=== PATIENT | female | born 1965 | race Caucasian/White ===

== ENCOUNTER 2017-02-12 05:14 | Inpatient (IN) | payer OTHER ==
[2017-02-03 09:50] VITALS: BMI 21.0
--- NOTE | 2017-02-03 10:34 | PAT Medication Instructions ---
Service Date Feb 03, 2017. Current Home Medication List Pseudoephedrine-Ibuprofen (Advil Cold & Sinus), 1 TAB PO PRN Medication Instructions For Your Scheduled Surgery - Hold the following medications the morning of surgery: Pseudoephedrine-Ibuprofen (Advil Cold & Sinus), 1 TAB PO PRN Nothing to eat or drink after midnight If you have any questions please call us at [phone] or [phone] or [phone]
[2017-02-03 11:42] LABS: BASO % 0.2 %; BASO ABS # 0.02 K/uL (0-0.2); COMPLETE YES; EOS % 1.6 %; HEMATOCRIT 44.7 % (37-47); IG% 0.1 %; LYMPH % 31.7 %; LYMPH ABS # 2.83 K/uL (1.2-3.4); MEAN CELL VOLUME 94.5 fL (80-100); MEAN CORPUSCULAR HEMOGLOBIN 31.7 pg (25-34); MEAN CORPUSCULAR HGB CONC 33.6 g/dl (32-36); MEAN PLATELET VOLUME 9.6 fL (7.4-10.4); MONO % 6.5 %; NEUT % 59.9 %; PLATELET COUNT 344 K/uL (130-400); RED BLOOD COUNT 4.73 M/uL (4.2-5.4); URINE APPEARANCE CLEAR (CLEAR); URINE BILIRUBIN NEG (NEG); URINE COLOR YELLOW; URINE NITRITE NEG (NEG); URINE SPECIFIC GRAVITY 1.009 (1.000-1.030); UROBILINOGEN NEG (NEG); WHITE BLOOD COUNT 8.92 K/uL (4.8-10.8)
[2017-02-03 11:50] LABS: PROTHROMBIN TIME (PATIENT) 10.2 SECONDS (9.0-12.0)
--- NOTE | 2017-02-03 11:52 | DIAGNOSTIC IMAGING REPORT ---
CHEST 2 VIEWS ROUTINE HISTORY: Preop. COMPARISON: None. FINDINGS: The lungs are clear. Cardiac silhouette is normal in size. No pleural effusions. No pneumothorax. IMPRESSION: No acute process. Electronically signed by: Jass Swann M.D. 02/03/2017 11:50 AM Dictated Date/Time: 02/03/2017 11:50 AM
[2017-02-03 11:55] LABS: MANUAL MICROSCOPIC REQUIRED? NO; REVIEW REQ? NO
[2017-02-03 12:26] LABS: BUN/CREATININE RATIO 19.9 (10-20); CALCIUM 8.8 mg/dl (8.5-10.1); CREATININE 0.57 mg/dl (0.60-1.20)
[2017-02-12] VITALS (8 sets, daily range): BP systolic 87–105; BP diastolic 53–64; PULSE 58–82; TEMP 36.3–37; O2SAT 96–100; Ht 165.1 cm; Wt 59.1 kg
[~2017-02-12] VITALS: Ht 165.1 cm; Wt 59.1 kg
[~2017-02-12 05:14] MED LIST: PSEUTAB19 PO
[2017-02-12] MEDS ORDERED: LORA-741 PO (05:43)
[2017-02-12] MEDS ORDERED: METR500T PO (05:44)
[2017-02-12] MEDS: LACTATED RINGER'S 1000ML IV SCH ×2 (05:46→11:03)
[2017-02-12] MEDS ORDERED: SCOPOLAMINE 1.5 MG TDSY TD SCH (06:00)
[2017-02-12] MEDS ORDERED: LACTATED RINGER'S 1000ML 1,000 ML IV SCH (06:00)
[2017-02-12] MEDS ORDERED: CEFAZOLIN 2000MG IV PUSH 10 ML IV SCH (06:00)
[2017-02-12] MEDS ORDERED: CHECK SCOPOLAMINE PATCH PLACEMENT SCH (06:00)
[2017-02-12] MEDS ORDERED: METHYLENE BLUE 0.5% 10 ML VIAL ONE (06:40)
[2017-02-12] MEDS ORDERED: MINERAL OIL LIGHT 10 ML BTL ONE (06:40)
[2017-02-12] MEDS ORDERED: BUPIVACAINE 0.5 % 5 MG/1 ML MPF 30ML VIAL ONE (06:40)
[2017-02-12] MEDS ORDERED: FENTANYL CITRATE INJ 50 MCG/1 ML 2 ML VIAL ONE (06:46)
[2017-02-12] MEDS ORDERED: MIDAZOLAM HCL 1 MG/ML 2ML VIAL ONE (06:46)
--- NOTE | 2017-02-12 06:59 | History & Physical Bridge Note ---
H&P Re-Evaluation Bridge Note: I have examined the patient, reviewed the History & Physical and in the interval since the performance of the History & Physical I have noted the following changes of clinical significance: No changes noted
[2017-02-12] MEDS ORDERED: HYDROmorphone INJ 2 MG/ML SYR/VIAL ONE (07:22)
[2017-02-12] MEDS ORDERED: ATROPINE SULFATE 0.1 MG/ML 5ML SYR IV PRN (07:30)
[2017-02-12] MEDS ORDERED: HYDROmorphone INJ 1 MG/ML SYR IV PRN (07:30)
[2017-02-12] MEDS ORDERED: ONDANSETRON INJ 2 MG/ML 2 ML VIAL IV PRN ×2 (07:30→09:30)
[2017-02-12] MEDS ORDERED: EpHEDrine SULFATE INJ 50 MG/ML AMP IV PRN (07:30)
[2017-02-12] MEDS ORDERED: ONDANSETRON INJ 2 MG/ML 2 ML VIAL ONE (07:32)
[2017-02-12] MEDS ORDERED: GLYCOPYRROLATE INJ 0.2 MG/ML VIAL ONE (07:32)
[2017-02-12] MEDS ORDERED: PROPOFOL IV EMULSION 10 MG/ML 20 ML VIAL IV ONE (07:32)
[2017-02-12] MEDS ORDERED: ROCURONIUM BROMIDE 10 MG/ML 5 ML VIAL IV ONE (07:32)
[2017-02-12] MEDS ORDERED: LARYING-O-JET KIT (LTA) ONE ×2 (07:32)
[2017-02-12] MEDS ORDERED: LIDOCAINE HCL 2% 2 ML VIAL (20MG/ML) ONE (07:32)
[2017-02-12] MEDS ORDERED: METOCLOPRAMIDE HCL INJ 5 MG/ML 2 ML VIAL ONE (07:32)
[2017-02-12] MEDS ORDERED: DEXAMETHASONE SOD INJ 4 MG/ML VIAL ONE (07:32)
[2017-02-12] MEDS ORDERED: NEOSTIGMINE METHYLSULFATE 5 MG/5 ML SYR ONE (07:32)
[2017-02-12] MEDS ORDERED: ALBUTEROL HFA INHALER 8.5 GM INH ONE (09:19)
[2017-02-12] MEDS ORDERED: OXYCODONE/ACETAMINOPHEN 5-325 TAB PO PRN (09:30)
[2017-02-12] MEDS ORDERED: PROMETHAZINE HCL INJ 12.5 MG in SODIUM CHLORIDE 0.9% 50ML 50 ML IV PRN (09:30)
[2017-02-12] MEDS ORDERED: MEPERIDINE HCL 50 MG/ML CARP IV PRN ×2 (09:30)
[2017-02-12] MEDS ORDERED: ACETAMINOPHEN 325 MG TAB PO PRN (09:30)
[2017-02-12] MEDS ORDERED: KETOROLAC TROMETHAMINE 30 MG/ML VIAL IV. PRN (09:30)
[2017-02-12] MEDS ORDERED: BISACODYL 10 MG SUPP PR PRN (09:30)
[2017-02-12] MEDS ORDERED: PROMETHAZINE HCL INJ 25 MG in SODIUM CHLORIDE 0.9% 50ML 50 ML IV PRN (09:30)
[2017-02-12] MEDS ORDERED: MAGNESIUM HYDROXIDE SUSP 30 ML UDC PO PRN (09:30)
--- NOTE | 2017-02-12 09:34 | [facility] Post Operative Brief Note ---
Immediate Operative Summary Operative Date Feb 12, 2017. Pre-Operative Diagnosis Abnormal uterine bleeding, atypical galndular cells on pap smear Post-Operative Diagnosis same Procedure(s) Performed Exam Under Anesthesia, Total Laparoscopic Hysterectomy, Bilateral Salpingo-Oophorectomy, Cystoscopy Surgeon Dr. Martin Entry Level Recruiter Surgeon(s) Dr. Jenkins Estimated Blood Loss 25cc Findings Normal size uterus,2x2 cm left paraovarian cyst Specimens A: Uterus, Ovaries, Fallopian Tubes Drains riley 75 ml Anesthesia GETA Disposition Recovery Room / PACU
--- NOTE | 2017-02-12 09:41 | SURGICAL CONSULTATION ---
DATE OF CONSULTATION: 02/12/2017 DATE OF CONSULTATION: 02/12/2017 SUMMARY: I was asked for intraoperative consult by Dr. Martin regarding Geovanna Espinoza. Reason for consultation was for maybe look at the bowel and evaluate to see any pathology. The patient has had a hysterectomy that was completed as I look at the intraoperative field through the laparoscope and that was completed, but the indication for hysterectomy according to Dr. Martin was that she has abdominal distention and bloating and never had any really GI workup. Her question was whether or not the bowel could be explaining some of the reason for the bloating. As I look at the small bowel it was grossly normal. I do not see any evidence of any gross abnormality. The cecum was slightly distended but nothing significant , did not have any fat stranding or anything. At this point, I recommended that once the patient gets over the operative field maybe she have further GI workup regarding any other reasons for abdominal distention, but certainly there is nothing I can see intraoperative evaluation today to give her a definitive diagnosis. GUDELIA
[2017-02-12] MEDS ORDERED: KETOROLAC TROMETHAMINE 30 MG/ML VIAL ONE (09:43)
[2017-02-12] MEDS: FENTANYL CITRATE INJ 50 MCG/1 ML 2 ML VIAL IV PRN ×2 (09:57→10:02)
--- NOTE | 2017-02-12 10:07 | Anesthesiology Progress Note ---
Anesthesia Post Op Note Date & Time Feb 12, 2017 at 10:07 Vital Signs Vital Signs Past 12 Hours Date Time Temp Pulse Resp B/P (MAP) Pulse Ox O2 Delivery O2 Flow Rate FiO2 02/12/17 10:02 59 15 02/12/17 10:02 59 15 100 02/12/17 10:01 95/74 02/12/17 09:57 57 16 100 02/12/17 09:57 54 16 02/12/17 09:52 54 16 02/12/17 09:52 54 16 100 02/12/17 09:51 109/68 02/12/17 09:49 57 19 02/12/17 09:49 57 19 100 02/12/17 09:44 61 14 100 02/12/17 09:44 61 14 02/12/17 09:41 107/69 02/12/17 09:39 66 14 100 02/12/17 09:39 65 14 02/12/17 09:36 96/61 02/12/17 09:35 94/62 02/12/17 09:34 69 17 02/12/17 09:34 36.6 64 16 96/61 100 Oxymask 10 02/12/17 09:34 17 02/12/17 05:45 36.5 82 18 90/60 (70) 99 Room Air Notes Mental Status: alert / awake / arousable, participated in evaluation Pt Amnestic to Procedure: Yes Nausea / Vomiting: adequately controlled Pain: adequately controlled Airway Patency, RR, SpO2: stable & adequate BP & HR: stable & adequate Hydration State: stable & adequate Anesthetic Complications: no major complications apparent
--- NOTE | 2017-02-12 10:20 | OPERATIVE REPORT ---
DATE OF OPERATION: 02/12/2017 PREOPERATIVE DIAGNOSIS: The patient is a 52-year-old perimenopausal female with abnormal uterine bleeding, atypical glandular cells on Pap smear and endometrial biopsy with hyperplasia, cannot rule out endometrial neoplasia and chronic pelvic pain. POSTOPERATIVE DIAGNOSES: Same and constipation, dilated bowel loops and a 2 cm right paraovarian cyst. PROCEDURE: Examination under anesthesia, total laparoscopic hysterectomy, bilateral salpingo-oophorectomy and cystoscopy. SURGEON: Dr. Martin. CISTERN ROOM OPERATOR: Dr. Jenkins. ESTIMATED BLOOD LOSS: 25 mL. DRAINS: Medina catheter drained 75 mL of clear urine. SPECIMENS: Uterus, ovaries and fallopian tubes. ANESTHESIA: General endotracheal. COMPLICATIONS: None. DESCRIPTION OF PROCEDURE: The patient was taken to the operating room where general anesthesia was given without difficulty. She was placed in dorsal lithotomy position, prepared and draped in usual sterile fashion. Examination under anesthesia that was done revealed anteverted small uterus, nonpalpable adnexa. Then a weighted speculum was placed in the patient's vagina. Cervix was visualized, grasped with single tooth tenaculum. Uterus was sounded to be 5.5 cm and then a medium sized VCare manipulator was placed into the uterus and its balloon was inflated. It was secured to the cervix with sutures at 12 and 6 o'clock position. Its green cap was over the cervix and it was locked with blue cap and it was tightened to keep the manipulator in its position during surgery. Then a Medina catheter was inserted into the bladder to drain and gloves were changed. Attention was turned to the patient's abdomen where an 11 mm periumbilical skin incision was made and the fascia was grasped with Pablo clamps and the Veress needle was introduced from fascia and normal saline test was done. It was flowing freely into the peritoneal cavity and then clear fluid was suctioned back. Gas was attached to the Veress needle. A pneumoperitoneum was obtained with the CO2 gas and the pressure was set to be 15 mmHg and then Veress needle was removed and 11 mm trocar with OptiScope was introduced from the incision under direct visualization. The intraabdominal placement was confirmed with the scope. Upon inspection of the bowels, the ascending colon were visualized to be dilated with loops consistent with the patient's history of constipation. Small bowels looked a minimally inflamed red and inflamed but no signs of obstruction was seen. Dr. Bose, who is a general surgeon, was called into the OR. He also inspected and recommended the patient to have consultation with GI and colonoscopy after surgery. Then Trendelenburg position was obtained. The uterus was in the midline, normal size and the left ovary and fallopian tube were normal. Right ovary was normal. There was a 2 x 2 cm paraovarian cyst. Pictures were taken. Then, 2 more trocars were placed in the right and left lower quadrants of the abdomen under direct visualization. The uterus was manipulated to expose the left adnexa. Then the left infundibulopelvic ligament was identified, grasped with LigaSure device, coagulated x3 and cut and then it was continued through the broad ligament under the ovary and the fallopian tube. The the round ligament was reached. It was coagulated and cut with LigaSure device. Leave of the broad ligament were coagulated and cut and vesicouterine peritoneum was also entered and lifted up with the tip of the device and it was coagulated and cut. The bladder was retracted down from the lower uterine segment. Same thing was on the right adnexa, right infundibulopelvic ligament was grasped with the LigaSure device, coagulated x3 and cut. The broad ligament and the round ligaments were also coagulated and cut and again vesicouterine peritoneum was continued from the right side meeting in the midline from the left side, coagulated and cut and bladder was retracted down from the lower uterine segment and cervix. Then on both sides uterine arteries were coagulated x3 and cardinal ligaments were coagulated and cut with LigaSure device.The sacrouterine ligaments were coagulated and cut. Then we were able to feel the edge of the VCare which was placed in the vagina earlier. With the tip of the LigaSure device vagina was incised and cut circumferentially around the V cap. The uterus and cervix was detached from the vagina completely. They were removed from the vagina and sent to pathology. The vagina was placed with a glove and sponge in it to provide pneumoperitoneum during surgery. The pelvis was irrigated with warm normal saline and suctioned. There was oozing spot on the right corner of the vaginal cuff. It was coagulated with the LigaSure device. The vaginal cuff was closed with absorbable Number: 0 polyglycol EndoStitch from right corner to the left in a continuous fashion. Excellent hemostasis was achieved. Lapra-Tys were placed on each side of the suture to provide a laparoscopic knots. Then the pelvic peritoneum was reapproximated with EndoStitch in a running fashion. Excellent hemostasis was achieved. The pelvis was irrigated with warm normal saline and suctioned and attention was turned to the patient's vagina. The glove in the vagina was removed and the Medina catheter was removed and cystoscopy was done. The bladder mucosa including all the whiteside were seen and noted to be intact and normal. Then bilateral ureteral jets were seen on both sides. Pictures were taken. The fluid was drained. Cystoscopy was ended and the new Medina catheter was placed into the bladder. Gloves were changed. Attention was turned to the patient's abdomen. All the trochars were removed. The fascial incisions were grasped with Pablo clamps, elevated, and repaired with 0 Vicryl with [id number] stitches on the 3 sites. The skin incisions were closed with 4-0 Monocryl in a subcuticular fashion and then the incisions were covered with Steri-Strips and 2X2 sponges. The procedure was ended. The patient tolerated the procedure well. Sponge, lap and instrument count was correct x2. She was given 2 grams of cefazolin before surgery. She was taken to recovery room in stable condition. No complications happened. I and Dr. Jenkins was present during whole procedure. I attest to the content of the Intraoperative Record and any orders documented therein. Any exceptions are noted below. GUDELIA
[2017-02-12] MEDS ORDERED: METO-157 PO (11:13)
[2017-02-12] MEDS ORDERED: OXYC-57 PO (11:13)
[2017-02-12] MEDS ORDERED: MTR600X PO (11:13)
[2017-02-12] MEDS ORDERED: MOMLX PO (11:13)
--- NOTE | 2017-02-12 11:15 | Discharge Instructions ---
Discharge Instructions Date of Service Feb 12, 2017. Admission Reason for Admission: Atypical Endometrial Hyperplasia, Fam Hx Uterine & Discharge Discharge Diagnosis / Problem: Total laparoscopic hysterectomy Discharge Goals Goal(s): Routine recovery after surgery Activity Recommendations Activity Limitations: as noted below Lifting Limitations: no more than 10 pounds Exercise/Sports Limitations: until after follow-up appointment May Resume Sexual Activity: after follow-up appointment Shower/Bathe: keep incision dry ACTIVITY RECOMMENDATIONS: * Avoid tampons, douching, hot tubs, pools, and intercourse until cleared by your surgeon. * May shower as usual. * No strenuous activity for 2 weeks SPECIAL CARE INSTRUCTIONS: Special Diet: * Mild nausea may occur in the immediate post-operative period. * Take clear liquids such as tea, cola or bouillon until all nausea has subsided; you may then resume your normal diet. Special Care: * Light bleeding and vaginal spotting can last from a few days to 3-4 weeks. Call your doctor if bleeding becomes heavier than the heaviest part of your period. * Check your temperature twice a day for one week. If it goes above 100.4 degrees Fahrenheit (38.0 Celsius), notify your doctor. * Call your doctor's office for an appointment for 2 and 6 weeks after your surgery. FOLLOW-UP VISIT: Call your doctor's office for an appointment for 2 and 6 weeks after your surgery. . Current Hospital Diet Patient's current hospital diet: Discharge Diet Recommended Diet: Regular Diet Procedures Procedures Performed: Exam Under Anesthesia, Total Laparoscopic Hysterectomy, Bilateral Salpingo-Oophorectomy, Cystoscopy Pending Studies Studies pending at discharge: no Medical Emergencies . Who to Call and When: Medical Emergencies: If at any time you feel your situation is an emergency, please call 911 immediately. . Non-Emergent Contact Non-Emergency issues call your: Surgeon Call Non-Emergent contact if: you have a fever, temperature is above 100.5, temperature is above 101, your pain is not controlled, your pain is worsening, your pain is unusual for you, your pain is concerning you, wound has increased drainage, wound has increased redness, wound has increased pain, you have any medication questions . . "Provider Documentation" section prepared by Corrie Martin. . VTE Core Measure Inpt VTE Proph given/why not?: Treatment not indicated
--- NOTE | 2017-02-12 11:31 | OB/GYN Progress Note ---
SMOKE TESTER Progress Note Date of Service: Feb 12, 2017. Postop check Patient is seen and examined Feels well, no complaints, other than being sore Pain is under control with meds No CP/ SOB/ Dizziness/ N&V/ VB/ Leg pain Not OOB yet Tolerating clears Explained about the surgery and findings Date Time Temp Pulse Resp B/P (MAP) Pulse Ox O2 Delivery O2 Flow Rate FiO2 02/12/17 10:30 100 Room Air 02/12/17 10:30 100 Room Air 02/12/17 10:17 59 16 99 02/12/17 10:17 59 16 02/12/17 10:16 96/63 02/12/17 10:12 57 16 02/12/17 10:12 57 16 100 02/12/17 10:11 109/66 02/12/17 10:11 36.7 02/12/17 10:08 61 16 100 02/12/17 10:08 60 16 02/12/17 10:06 103/66 02/12/17 10:03 56 16 02/12/17 10:03 55 16 100 02/12/17 10:02 59 15 02/12/17 10:02 59 15 100 02/12/17 10:01 95/74 02/12/17 09:57 57 16 100 02/12/17 09:57 54 16 02/12/17 09:52 54 16 02/12/17 09:52 54 16 100 02/12/17 09:51 109/68 02/12/17 09:49 57 19 02/12/17 09:49 57 19 100 02/12/17 09:44 61 14 100 02/12/17 09:44 61 14 02/12/17 09:41 107/69 02/12/17 09:39 66 14 100 02/12/17 09:39 65 14 02/12/17 09:36 96/61 02/12/17 09:35 94/62 02/12/17 09:34 69 17 02/12/17 09:34 36.6 64 16 96/61 100 Oxymask 10 02/12/17 09:34 17 02/12/17 05:45 36.5 82 18 90/60 (70) 99 Room Air PE: General: Alert, orientedx3, NAD CVS: S1S2 RRR Lungs: CTAB Abd: soft, NT, ND, BS+, dressings C/D/I No VB Ext: NT, no edema, SCD's on AP: 52 yo female s/p EUA, TLH, BSO, Cystoscopy , pod#0 VSS Afebrile doing well Continue to monitor closely Encourage PO intake, may ambulate in the evening D/C riley in am or tonight if she desires can ambulate Nicotine patch in am Anticipate DC tomorrow
[2017-02-12] MEDS: NICOTINE 14 MG/24 HR TDSY TD SCH ×2 (12:00→14:22)
[2017-02-12] MEDS: SIMETHICONE 80 MG CHEW PO PRN (17:21)
[2017-02-12 20:57] LABS: HEMATOCRIT 37.6 % (37-47)
[2017-02-12] MEDS: DOCUSATE SODIUM 100 MG CAP PO SCH (21:03)
[2017-02-12] MEDS: OXYCODONE/ACETAMINOPHEN 5-325 TAB PO PRN (23:33)
[2017-02-13 03:25] VITALS: BP 90/50; PULSE 66; TEMP 36.8; O2SAT 96
[2017-02-13] MEDS: IBUPROFEN 600 MG TAB PO PRN ×2 (03:36→07:32)
[2017-02-13 07:20] VITALS: BP 96/60; PULSE 70; TEMP 36.7; O2SAT 98
[2017-02-13] MEDS: DOCUSATE SODIUM 100 MG CAP PO SCH (07:31)
[2017-02-13] MEDS: OXYCODONE/ACETAMINOPHEN 5-325 TAB PO PRN (07:32)
[2017-02-13 07:53] LABS: BASO % 0.1 %; BASO ABS # 0.01 K/uL (0-0.2); COMPLETE YES; EOS % 0.3 %; HEMATOCRIT 37.7 % (37-47); IG% 0.1 %; LYMPH % 18.6 %; LYMPH ABS # 2.96 K/uL (1.2-3.4); MEAN CORPUSCULAR HEMOGLOBIN 31.2 pg (25-34); MEAN CORPUSCULAR HGB CONC 33.2 g/dl (32-36); MEAN PLATELET VOLUME 9.3 fL (7.4-10.4); MONO % 8.2 %; NEUT % 72.7 %; PLATELET COUNT 325 K/uL (130-400); RED BLOOD COUNT 4.01 M/uL (4.2-5.4); WHITE BLOOD COUNT 15.93 K/uL (4.8-10.8)
[2017-02-13 08:25] LABS: BUN/CREATININE RATIO 13.1 (10-20); CALCIUM 8.4 mg/dl (8.5-10.1); CREATININE 0.75 mg/dl (0.60-1.20)
--- NOTE | 2017-02-13 10:02 | OB/GYN Progress Note ---
[facility] OR LPN Progress Note Date of Service: Feb 13, 2017. Patient is seen and examined. She feels well, no complaints. Pain is under control with oral meds. Ambulating without dizziness Voiding without difficulty Tolerating regular diet with out N&V Flatus + BM NEG Bleeding is minimal No fever/ chills/ CP/ SOB/ N&V/ Leg pain Date Time Temp Pulse Resp B/P (MAP) Pulse Ox O2 Delivery O2 Flow Rate FiO2 02/13/17 07:20 Room Air 02/13/17 07:20 36.7 70 20 96/60 (72) 98 Room Air 02/13/17 03:25 36.8 66 16 90/50 (63) 96 Room Air 02/12/17 23:20 37.0 78 18 100/57 (71) 96 Room Air 02/12/17 23:20 96 Room Air 02/12/17 19:30 Room Air 02/12/17 15:00 100 Room Air 02/12/17 12:30 36.6 69 16 99/63 (75) 97 Room Air 02/12/17 12:05 62 92/53 (66) 02/12/17 11:30 36.4 72 16 87/57 (67) 99 Room Air 02/12/17 11:00 36.4 58 16 99/61 (74) 100 Room Air 02/12/17 10:30 36.3 59 16 105/64 (78) 100 Room Air 02/12/17 10:30 100 Room Air 02/12/17 10:30 100 Room Air 02/12/17 10:17 59 16 99 02/12/17 10:17 59 16 02/12/17 10:16 96/63 02/12/17 10:12 57 16 02/12/17 10:12 57 16 100 02/12/17 10:11 109/66 02/12/17 10:11 36.7 02/12/17 10:08 61 16 100 02/12/17 10:08 60 16 02/12/17 10:06 103/66 02/12/17 10:03 56 16 02/12/17 10:03 55 16 100 02/12/17 10:02 59 15 02/12/17 10:02 59 15 100 Last 24 Hours Test 02/12/17 20:38 02/13/17 07:33 Hemoglobin 12.7 g/dL 12.5 g/dL Hematocrit 37.6 % 37.7 % White Blood Count 15.93 K/uL Red Blood Count 4.01 M/uL Mean Corpuscular Volume 94.0 fL Mean Corpuscular Hemoglobin 31.2 pg Mean Corpuscular Hemoglobin Concent 33.2 g/dl Platelet Count 325 K/uL Mean Platelet Volume 9.3 fL Neutrophils (%) (Auto) 72.7 % Lymphocytes (%) (Auto) 18.6 % Monocytes (%) (Auto) 8.2 % Eosinophils (%) (Auto) 0.3 % Basophils (%) (Auto) 0.1 % Neutrophils # (Auto) 11.59 K/uL Lymphocytes # (Auto) 2.96 K/uL Monocytes # (Auto) 1.30 K/uL Eosinophils # (Auto) 0.05 K/uL Basophils # (Auto) 0.01 K/uL RDW Standard Deviation 45.1 fL RDW Coefficient of Variation 13.1 % Immature Granulocyte % (Auto) 0.1 % Immature Granulocyte # (Auto) 0.02 K/uL Sodium Level 141 mmol/L Potassium Level 4.0 mmol/L Chloride Level 108 mmol/L Carbon Dioxide Level 27 mmol/L Anion Gap 6.0 mmol/L Blood Urea Nitrogen 10 mg/dl Creatinine 0.75 mg/dl Est Creatinine Clear Calc Drug Dose 79.9 ml/min Estimated GFR () 107.0 Estimated GFR (Non- 92.3 BUN/Creatinine Ratio 13.1 Random Glucose 138 mg/dl Calcium Level 8.4 mg/dl PE: General: Alert, orientedx3, NAD CVS: S1S2 RRR Lungs; CTAB Abd: soft, NT, ND, BS+ Incisions: Clean, dry, intact No VB Ext; NT, no edema AP: 52 yo s/p EUA, TLH, ROSE MARIE, Cysto, pod# 1 VSS Afebrile doing well Desires to be discharged Instructions were when to call All questions were answered D/C home , f/u in office
[2017-02-13] MEDS: SIMETHICONE 80 MG CHEW PO PRN (10:12)
[2017-02-13 10:22] VITALS: BP 96/60; PULSE 70; TEMP 36.7; O2SAT 98
== END 2017-02-13 10:40 | disposition home or self-care (01) | DRG 743 ==
LOC: C.ACU 05:14 → C.MS4N 09:32 → ENRESERV 10:16
PROVIDERS: ADMIT Obstetrics & Gynecology; ATTEND Obstetrics & Gynecology
PROC: 0UT24ZZ Resection of Bilateral Ovaries, Percutaneous Endoscopic Approach (ICD-10-PCS; principal; 2017-02-12 07:00)
PROC: 0UT94ZZ Resection of Uterus, Percutaneous Endoscopic Approach (ICD-10-PCS; principal; 2017-02-12 07:00)
PROC: 0UT74ZZ Resection of Bilateral Fallopian Tubes, Percutaneous Endoscopic Approach (ICD-10-PCS; principal; 2017-02-12 07:00)
DX: N92.4 Excessive bleeding in the premenopausal period (principal); R10.2 Pelvic and perineal pain; G89.29 Other chronic pain; R87.618 Other abnormal cytological findings on specimens from cervix uteri; N85.00 Endometrial hyperplasia, unspecified; N83.201 Unspecified ovarian cyst, right side; K59.00 Constipation, unspecified; F17.200 Nicotine dependence, unspecified, uncomplicated; Z80.41 Family history of malignant neoplasm of ovary

== ENCOUNTER 2021-06-01 20:34 | Observation (INO) ==
[2021-06-01] MEDS ORDERED: ASPIRIN CHEW 324 MG PO STA (20:53)
[2021-06-01] MEDS ORDERED: ONDANSETRON INJ 2 MG/ML 2 ML VIAL IV STA (20:53)
[2021-06-01] MEDS ORDERED: NITROGLYCERIN 2% OINTMENT 30GM TUBE EXT STA (20:53)
[2021-06-01 21:11] LABS: Basophils # (auto) 0.03 K/uL (0-0.2); Basophils % (auto) 0.3 %; Eosinophils # (auto) 0.07 K/uL (0-0.5); Eosinophils % (auto) 0.6 %; Hemoglobin 14.9 g/dL (12.0-16.0); Immature Granulocytes # (auto) 0.03 K/uL (0.00-0.02); Immature Granulocytes % (auto) 0.3 %; Lymphocytes # (auto) 1.47 K/uL (1.2-3.4); Lymphocytes % (auto) 13.3 %; Mean Corpuscular Hemoglobin 31.9 pg (25-34); Mean Corpuscular Hgb Conc 34.7 g/dL (32-36); Mean Corpuscular Volume 92.1 fL (80-100); Mean Platelet Volume 9.1 fL (7.4-10.4); Monocytes # (auto) 0.56 K/uL (0.11-0.59); Monocytes % (auto) 5.1 %; Neutrophils # (auto) 8.87 K/uL (1.4-6.5); Neutrophils % (auto) 80.4 %; Platelet Count 450 K/uL (130-400); RDW Coefficient of Variation 13.7 % (11.5-14.5); RDW Standard Deviation 46.2 fL (36.4-46.3); Red Blood Count 4.67 M/uL (4.2-5.4); White Blood Count 11.03 K/uL (4.8-10.8)
--- NOTE | 2021-06-01 21:14 | Emergency Department Note ---
Impression & Plan Precordial chest pain, SOB (shortness of breath), Nausea ED Provider Note NAME: NADIRA HOFFMANN AGE: 56 SEX: F : 1965 ARRIVES VIA: Walk-In INFORMANT: [Patient] ED PROVIDER(S): [Ricardo Doll MD] CHIEF COMPLAINT: Cardiac assessment HISTORY OF PRESENT ILLNESS: The patient is a 56-year-old female who presents to the ER with a week of intermittent exertional chest pain. The pain is in the left chest, in her jaw, into her back and her shoulder. Sometimes, her arms feel heavy. Exertion such as cleaning, makes things worse, rest seems to make things a bit better. The patient had pain as bad as an 8/10 a week ago, today, it is a 4/10. The patient does smoke tobacco and has a strong family history of heart disease. She does not herself have a diagnosis of heart disease. She does not have any hypertension, diabetes or high cholesterol. REVIEW OF SYSTEMS: See HPI for pertinent positives and negatives. A total of ten systems were reviewed and were otherwise negative. PMHx/PSHx: See Below SOCIAL HISTORY: See Below. PHYSICAL EXAM: GENERAL: Patient is in no acute distress. HEENT: No acute trauma, normocephalic atraumatic, mucous membranes moist, no nasal congestion, no scleral icterus. NECK: No stridor, no adenopathy, no meningismus, trachea is midline. LUNGS: Clear to auscultation bilaterally, no wheeze, no rhonchi, breath sounds equal. HEART: Without murmurs gallops or rubs, regular rate and rhythm. ABDOMEN: Soft, nontender, bowel sounds positive, no hernias, no peritonitis. EXTREMITIES: No cyanosis or edema, full range of motion of all the joints without pain or difficulty, no signs for acute trauma. NEUROLOGIC: Oriented x 3, no acute motor or sensory deficits, no focal weakness. SKIN: No rash, no jaundice, no diaphoresis. DIFFERENTIAL DIAGNOSIS: Cardiac ischemia, aortic dissection, pulmonary embolism, pneumothorax, pneumonia, pericarditis, myocarditis, esophageal rupture, GERD, cholecystitis, pancreatitis, musculoskeletal, as well as other pathologies. EMERGENCY DEPARTMENT COURSE/PROCEDURES: ECG: Indication was chest pain. The ECG shows a normal sinus rhythm with a rate of 85. There is no ST elevation, no PVCs. The QTc is 471. Continuous Cardiac Monitoring: An order was placed for continuous cardiac monitoring. The monitor shows a rate of 96 with normal sinus rhythm. MEDICAL DECISION MAKING: There is a mild leukocytosis, this could be consistent with infection or just the stress of her presentation. There is a normal hemoglobin. Platelet count a bit high at 450. There is no coagulopathy. No significant electrolyte abnormality or kidney failure. No concerning liver enzyme elevation. No evidence for pancreatitis. TSH was a bit high, the T4 was normal. ECG shows a normal sinus rhythm, no obvious acute ST elevation. Cardiac enzyme testing x1 is not consistent with acute cardiac injury. Chest x-ray does not show mediastinal widening, pneumonia or pneumothorax. Chest CT does not show PE or pneumonia. No evidence for thoracic dissection. The patient presents with precordial chest pain which seems to worsen with exertion, improve with rest. She does have some cardiac risk factors. She was given 4 mg of Zofran IV, 1 inch of Nitropaste, oral aspirin. She feels improved. Given her cardiac risk factors, given her presentation and her response to topical nitrates, I do think a hospital stay is warranted for further cardiac work-up. I spoke with the patient and family caseworker. The on-call hospitalist was consulted. Past Med/Surg History Medical History Hypothyroid Social History Smoking Status: Current every day smoker Preferred Language: Gibralt[place] Feels Safe at Home: Yes Allergies Allergies Allergy/AdvReac Type Severity Reaction Status Date / Time No Known Allergies Allergy Unverified 06/01/21 21:45 Home Meds Home Medications Medication Instructions Recorded Confirmed baclofen 10 mg tablet 10 mg PO DAILY 06/01/21 06/01/21 duloxetine 60 mg capsule,delayed 60 mg PO QAM 06/01/21 06/01/21 release (Cymbalta) gabapentin 300 mg capsule 300 mg PO BID 06/01/21 06/01/21 levothyroxine 1 tab PO DAILY 06/01/21 06/01/21 sumatriptan succinate 50 mg tablet 50 mg PO UD PRN 06/01/21 06/01/21 Results & Data (ED) Vital Signs Vital Signs - 24 hr 06/01/21 20:37 06/01/21 21:30 06/01/21 21:55 Temperature 36.6 C Temperature Source Temporal Artery Scan Pulse Rate 96 H Pulse Rate [Apical] 81 83 Pulse Rhythm Regular Pulse Strength Normal Respiratory Rate 20 18 18 Respiratory Effort / Characteristics Non-Labored Non-Labored Spontaneous Non-Labored Spontaneous Respiratory Depth Normal Normal Normal Respiratory Pattern Regular Regular Regular Blood Pressure 118/64 Blood Pressure [Right Arm] 122/73 102/55 L Blood Pressure Mean 82 Blood Pressure Mean [Right Arm] 89 70 Blood Pressure Position Sitting Blood Pressure Position [Right Arm] Lying Lying Pulse Oximetry 98 96 96 Oxygen Delivery Method Room Air Room Air Room Air Sepsis Recent Fever Within 48 Hours No Sepsis New/Unexplained Change in Mental Status N/A Sepsis Action Taken by Nursing No Action Required Home Medications Current Medication List: was personally reviewed by me Laboratory Data Attestation: I reviewed the patient's lab results. Result diagrams: 06/01/21 21:02 06/01/21 21:02 Lab Results 06/01/21 06/01/21 06/01/21 Range/Units 21:02 21:02 21:02 WBC 11.03 H (4.8-10.8) K/uL RBC 4.67 (4.2-5.4) M/uL Hgb 14.9 (12.0-16.0) g/dL Hct 43.0 (37-47) % MCV 92.1 (80-100) fL MCH 31.9 (25-34) pg MCHC 34.7 (32-36) g/dL RDW Std Deviation 46.2 (36.4-46.3) fL RDW Coeff of Maribell 13.7 (11.5-14.5) % Plt Count 450 H (130-400) K/uL MPV 9.1 (7.4-10.4) fL Immature Gran % (Auto) 0.3 % Neut % (Auto) 80.4 % Lymph % (Auto) 13.3 % [place] % (Auto) 5.1 % Eos % (Auto) 0.6 % Baso % (Auto) 0.3 % Neut # (Auto) 8.87 H (1.4-6.5) K/uL Lymph # (Auto) 1.47 (1.2-3.4) K/uL [place] # (Auto) 0.56 (0.11-0.59) K/uL Eos # (Auto) 0.07 (0-0.5) K/uL Baso # (Auto) 0.03 (0-0.2) K/uL Immature Gran # (Auto) 0.03 H (0.00-0.02) K/uL PT 10.9 (9.0-12.0) Seconds INR 1.0 (0.9-1.1) APTT 28.5 (21.0-31.0) Seconds PTT Ratio 1.0 Sodium 138 (136-145) mmol/L Potassium 3.8 (3.5-5.1) mmol/L Chloride 105 (98-107) mmol/L Carbon Dioxide 25 (21-32) mmol/L Anion Gap 8 (3-11) BUN 14 (6-23) mg/dl Creatinine 0.57 L (0.6-1.2) mg/dl Est Cr Clr Drug Dosing 100.3 ml/min Est GFR ( Amer) 121.0 ml/min Est GFR (Non-Af Amer) 104.4 ml/min BUN/Creatinine Ratio 24.6 H (10-20) Glucose 136 H (70-99(Fasting)) mg/dl Calcium 9.3 (8.5-10.1) mg/dl Magnesium 2.0 (1.7-2.4) mg/dl Total Bilirubin 0.3 (0.2-1.0) mg/dl AST 18 (13-39) U/L ALT 15 (7-52) U/L Alkaline Phosphatase 82 (34-104) U/L Troponin I < 0.03 (0-0.04) ng/ml Total Protein 7.3 (6.0-8.3) gm/dl Albumin 4.3 (3.4-5.0) gm/dl Globulin 3.0 (2.5-4.0) gm/dl Albumin/Globulin Ratio 1.4 (0.9-2) Lipase 32 (11-82) U/L TSH (0.300-4.500) uIu/ml Free T4 (0.61-1.60) ng/dl 06/01/21 Range/Units 21:02 WBC (4.8-10.8) K/uL RBC (4.2-5.4) M/uL Hgb (12.0-16.0) g/dL Hct (37-47) % MCV (80-100) fL MCH (25-34) pg MCHC (32-36) g/dL RDW Std Deviation (36.4-46.3) fL RDW Coeff of Maribell (11.5-14.5) % Plt Count (130-400) K/uL MPV (7.4-10.4) fL Immature Gran % (Auto) % Neut % (Auto) % Lymph % (Auto) % [place] % (Auto) % Eos % (Auto) % Baso % (Auto) % Neut # (Auto) (1.4-6.5) K/uL Lymph # (Auto) (1.2-3.4) K/uL [place] # (Auto) (0.11-0.59) K/uL Eos # (Auto) (0-0.5) K/uL Baso # (Auto) (0-0.2) K/uL Immature Gran # (Auto) (0.00-0.02) K/uL PT (9.0-12.0) Seconds INR (0.9-1.1) APTT (21.0-31.0) Seconds PTT Ratio Sodium (136-145) mmol/L Potassium (3.5-5.1) mmol/L Chloride (98-107) mmol/L Carbon Dioxide (21-32) mmol/L Anion Gap (3-11) BUN (6-23) mg/dl Creatinine (0.6-1.2) mg/dl Est Cr Clr Drug Dosing ml/min Est GFR ( Amer) ml/min Est GFR (Non-Af Amer) ml/min BUN/Creatinine Ratio (10-20) Glucose (70-99(Fasting)) mg/dl Calcium (8.5-10.1) mg/dl Magnesium (1.7-2.4) mg/dl Total Bilirubin (0.2-1.0) mg/dl AST (13-39) U/L ALT (7-52) U/L Alkaline Phosphatase (34-104) U/L Troponin I (0-0.04) ng/ml Total Protein (6.0-8.3) gm/dl Albumin (3.4-5.0) gm/dl Globulin (2.5-4.0) gm/dl Albumin/Globulin Ratio (0.9-2) Lipase (11-82) U/L TSH 8.759 H (0.300-4.500) uIu/ml Free T4 0.94 (0.61-1.60) ng/dl Administered Medications Discontinued Medications Aspirin (Aspirin Chew 324 Mg) 324 mg PO NOW STA Stop: 06/01/21 20:54 Last Admin: 06/01/21 21:06 Dose: 324 mg Documented by: [id number] Ioversol (Optiray 320 125ml) 111 ml IV ONCE ONE Stop: 06/01/21 22:14 Last Admin: 06/01/21 22:13 Dose: 111 ml Documented by: [id number] Nitroglycerin (Nitroglycerin 2% Ointment 30gm Tube) 1 inch EXT NOW STA Stop: 06/01/21 20:54 Last Admin: 06/01/21 21:07 Dose: 1 inch Documented by: [id number] Ondansetron HCl (Ondansetron Inj 2 Mg/Ml 2 Ml Vial) 4 mg IV NOW STA Stop: 06/01/21 20:54 Last Admin: 06/01/21 21:06 Dose: 4 mg Documented by: [id number] Imaging Data Attestation: I personally reviewed and interpreted this imaging study as follows: My Impression: Chest x-ray: Per my review, there is no pneumonia, mediastinal widening or pne umothorax. Radiologist's Impression: Chest CT for PE: No PE, vascular structures are unremarkable. The lungs are clear. Discharge Plan Visit Data Chief Complaint: Cardiac Assessment Stated Complaint: L SIDE CHEST PAIN, L ARM PAIN, TINGLES, SOB ED Provider: Ricardo Doll Discharge Problem: Precordial chest pain, SOB (shortness of breath), Nausea Patient Disposition: Admitted As Inpatient Condition: Fair Forms Stand Alone Forms: My [facility] [email or web address] Prescriptions Prescriptions: No Action sumatriptan succinate 50 mg tablet 50 mg PO UD PRN (Reason: Migraine Headache) RF: 0 baclofen 10 mg tablet 10 mg PO DAILY RF: 0 gabapentin 300 mg capsule 300 mg PO BID RF: 0 duloxetine [Cymbalta] 60 mg Capsule,Delayed Release(Dr/Ec) 60 mg PO QAM RF: 0 levothyroxine 1 tab PO DAILY RF: 0 Referrals Referrals: Newhouser,Deloris M., DO [Primary Care Provider] -
[2021-06-01 21:28] LABS: Partial Thromboplastin Time 28.5 Seconds (21.0-31.0); Prothrombin Time 10.9 Seconds (9.0-12.0)
[2021-06-01 21:42] LABS: Troponin I < 0.03 ng/ml (0-0.04)
[2021-06-01 21:48] LABS: Alanine Aminotransferase 15 U/L (7-52); Albumin Globulin Ratio 1.4 (0.9-2); Albumin Level 4.3 gm/dl (3.4-5.0); Alkaline Phosphatase 82 U/L (34-104); Anion Gap 8 (3-11); Aspartate Aminotransferase 18 U/L (13-39); BUN Creatinine Ratio 24.6 (10-20); Bilirubin,Total 0.3 mg/dl (0.2-1.0); Blood Urea Nitrogen 14 mg/dl (6-23); Calcium 9.3 mg/dl (8.5-10.1); Carbon Dioxide 25 mmol/L (21-32); Chloride 105 mmol/L (98-107); Creatinine Clr Calc Pharmacy 100.3 ml/min; Est GFR (Non-African American) 104.4 ml/min; Glucose 136 mg/dl (70-99(Fasting)); Lipase 32 U/L (11-82); Potassium 3.8 mmol/L (3.5-5.1); Sodium 138 mmol/L (136-145); Total Protein 7.3 gm/dl (6.0-8.3)
[2021-06-01 21:55] LABS: Thyroid Stimulating Hormone 8.759 uIu/ml (0.300-4.500)
[2021-06-01] MEDS ORDERED: OPTIRAY 320 125ml IV ONE (22:13)
[2021-06-01 22:27] LABS: T4 Free Thyroxine 0.94 ng/dl (0.61-1.60)
[2021-06-01] MEDS ORDERED: SODIUM CHLORIDE 0.9% 500 ML IV STA (23:35)
--- NOTE | 2021-06-02 00:13 | History & Physical Report ---
Date of Service June 02, 2021 Assessment & Plan (1) Precordial chest pain: Plan: Atypical Likely musculoskeletal given reproducibility, history of myofascial pain syndrome Rule out ACS given risk factors for ischemic heart disease Anxiety contributory to symptoms mood disorder, at baseline hypothyroidism, TSH slightly elevated Hyperglycemia rule out DM ongoing tobacco abuse OBS PCU Analgesia, anxiolytic as needed Follow troponin Stress echo if a.m. troponin within normal limits Aspirin for CAD prevention until ACS ruled out Nicotine patch as needed Check hemoglobin A1c DVT prophylaxis per Lovenox subcu Full code Text document was generated using [employer] voice recognition software. It may contain grammatical or spelling errors. Kindly contact undersigned for clarification of any documentation item in question. History of Present Illness Chief Complaint: Chest pain Primary Care Provider: Dr. Omari Seals History obtained from patient and records. Medical history significant for mood disorder, myofascial pain syndrome, cervical dysplasia, hypothyroidism, ongoing tobacco abuse. Last confinement 2016 under gynecology service for [facility] for abnormal uterine bleeding. 1 week history of intermittent left-sided squeezing chest pain symptoms with radiation to the throat and under the armpit associated with some shortness of breath. No unusual cough symptoms. Some lightheadedness. Symptoms somewhat worse on exertion. No rashes. 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 Equivocal relief with aspirin and nitroglycerin given at the ER. Medical History as above Surgical History : [facility], colposcopy/hysteroscopy, tonsillectomy/adenoidectomy Family History : Heart disease, throat cancer, bladder cancer, stomach cancer, mood disorder, ovarian cancer, RA Personal/Social history : 1/4 pack daily, occasional EtOH intake, TIME STUDY ENGINEER Allergies Allergy/AdvReac Type Severity Reaction Status Date / Time No Known Allergies Allergy Unverified 06/01/21 21:45 Home Medications Medication Instructions Recorded Confirmed Type baclofen 10 mg tablet 10 mg PO DAILY 06/01/21 06/01/21 History duloxetine 60 mg capsule,delayed 60 mg PO QAM 06/01/21 06/01/21 History release (Cymbalta) gabapentin 300 mg capsule 300 mg PO BID 06/01/21 06/01/21 History levothyroxine 1 tab PO DAILY 06/01/21 06/01/21 History sumatriptan succinate 50 mg tablet 50 mg PO UD PRN 06/01/21 06/01/21 History Past Med/Surg History Medical History Hypothyroid Social History Smoking Status: Current every day smoker Cigarettes Per Day: 7; Hx Alcohol Use: No Hx Substance Use: No Preferred Language: [place] Beliefs That Will Affect Care: None Current Living Situation: Spouse Other Information That Helps Us Care for You: No Feels Safe at Home: Yes Safety Concerns: Feels Safe At This Time Assistive Devices: Denture - Upper Review of Systems Review of Systems: As per HPI, all 10 systems reviewed, all other ROS negative Physical Exam Physical Exam: GENERAL: Slightly uncomfortable, slightly anxious, no respiratory distress SKIN: Normal color, warm HEENT: [place] palpebral conjunctivae, no ptosis, dry buccal mucosa NECK : Supple, no tenderness CHEST : CTA, anterior chest wall tenderness left HEART : RRR, no obvious murmurs ABDOMEN: no distention, nontender EXTREMITIES : No LE swelling/tenderness, no other conspicuous deformities noted NEUROLOGIC : Coherent, no facial asymmetry, no other gross focality Results & Data Results & Data ([facility]) Vital Signs (Past 12 Hours) Vital Signs Temp Pulse Pulse Resp BP BP Pulse Ox 06/01/21 23:00 72 12 104/69 95 06/01/21 22:30 81 17 109/68 92 06/01/21 21:55 83 18 102/55 L 96 06/01/21 21:30 81 18 122/73 96 06/01/21 20:37 36.6 C 96 H 20 118/64 98 Laboratory Results Laboratory Results WBC 11.03 K/uL (4.8-10.8) H 06/01/21 21:02 RBC 4.67 M/uL (4.2-5.4) 06/01/21 21:02 Hgb 14.9 g/dL (12.0-16.0) 06/01/21 21:02 Hct 43.0 % (37-47) 06/01/21 21:02 MCV 92.1 fL (80-100) 06/01/21 21:02 MCH 31.9 pg (25-34) 06/01/21 21:02 MCHC 34.7 g/dL (32-36) 06/01/21 21: RDW Std Deviation 46.2 fL (36.4-46.3) 06/01/21 21: RDW Coeff of Maribell 13.7 % (11.5-14.5) 06/01/21 21: Plt Count 450 K/uL (130-400) H 06/01/21 21:02 MPV 9.1 fL (7.4-10.4) 06/01/21 21: Immature Gran % (Auto) 0.3 % 06/01/21 21: Neut % (Auto) 80.4 % 06/01/21: Lymph % (Auto) 13.3 % 06/01/21: [place] % (Auto) 5.1 % 06/01/21: Eos % (Auto) 0.6 % 06/01/21: Baso % (Auto) 0.3 % 06/01/21: Neut # (Auto) 8.87 K/uL (1.4-6.5) H 06/01/21 21: Lymph # (Auto) 1.47 K/uL (1.2-3.4) 06/01/21 21: [place] # (Auto) 0.56 K/uL (0.11-0.59) 06/01/21 21: Eos # (Auto) 0.07 K/uL (0-0.5) 06/01/21 21: Baso # (Auto) 0.03 K/uL (0-0.2) 06/01/21: Immature Gran # (Auto) 0.03 K/uL (0.00-0.02) H 06/01/21 21: PT 10.9 Seconds (9.0-12.0) 06/01/21 21: INR 1.0 (0.9-1.1) 06/01/21 21: APTT 28.5 Seconds (21.0-31.0) 06/01/21 21: PTT Ratio 1.0 06/01/21 21: Sodium 138 mmol/L (136-145) 06/01/21 21: Potassium 3.8 mmol/L (3.5-5.1) 06/01/21:02 Chloride 105 mmol/L (98-107) 06/01/21 21:02 Carbon Dioxide 25 mmol/L (21-32) 06/01/21 21:02 Anion Gap 8 (3-11) 06/01/21 21:02 BUN 14 mg/dl (6-23) 06/01/21 21: Creatinine 0.57 mg/dl (0.6-1.2) L 06/01/21 21: Est Cr Clr Drug Dosing 100.3 ml/min 06/01/21 21: Est GFR ( Amer) 121.0 ml/min 06/01/21 21: Est GFR (Non-Af Amer) 104.4 ml/min 06/01/21 21:02 BUN/Creatinine Ratio 24.6 (10-20) H 06/01/21 21: Glucose 136 mg/dl (70-99(Fasting)) H 06/01/21 21: Calcium 9.3 mg/dl (8.5-10.1) 06/01/21: Magnesium 2.0 mg/dl (1.7-2.4) 06/01/21 21: Total Bilirubin 0.3 mg/dl (0.2-1.0) 06/01/21 21: AST 18 U/L (13-39) 06/01/21 21: ALT 15 U/L (7-52) 06/01/21 21: Alkaline Phosphatase 82 U/L (34-104) 06/01/21 21: Troponin I < 0.03 ng/ml (0-0.04) 06/01/21 21: Total Protein 7.3 gm/dl (6.0-8.3) 06/01/21 21: Albumin 4.3 gm/dl (3.4-5.0) 06/01/21 21: Globulin 3.0 gm/dl (2.5-4.0) 06/01/21 21: Albumin/Globulin Ratio 1.4 (0.9-2) 06/01/21 21: Lipase 32 U/L (11-82) 06/01/21 21: TSH 8.759 uIu/ml (0.300-4.500) H 06/01/21 21: Free T4 0.94 ng/dl (0.61-1.60) 06/01/21 21:02 SARS-CoV-2, RNA, NAAT NEGATIVE (NEGATIVE) 06/01/21 23:[address] chest initial read: No pulmonaryembolism. CVstructures are unremarkable. Lungs are clear. No acute osseous findings. EKG as per my interpretation:Rate 85, NSR, normal axis, no ischemia
[2021-06-02] MEDS ORDERED: NITROGLYCERIN SL 0.4 MG/TAB TAB SL STA (00:51)
[2021-06-02] MEDS ORDERED: LACTATED RINGER'S 1,000 ML IV ONE (00:57)
[2021-06-02] MEDS ORDERED: traMADol HCL 50 MG TABLET PO PRN (00:57)
[2021-06-02] MEDS ORDERED: LORazepam 2 MG/1 ML VIAL IV PRN (00:57)
[2021-06-02] MEDS ORDERED: PROMETHAZINE HCL 6.25 MG in SODIUM CHLORIDE 0.9% 50 ML IV PRN (00:57)
[2021-06-02] MEDS ORDERED: MoRPHine SULFATE 2 MG/ML CARP IV PRN (00:57)
[2021-06-02] MEDS ORDERED: ACETAMINOPHEN 325 MG TAB PO PRN (01:58)
[2021-06-02] MEDS ORDERED: NITROGLYCERIN SL 0.4 MG/TAB TAB SL PRN (01:58)
[2021-06-02 05:42] LABS: Basophils # (auto) 0.02 K/uL (0-0.2); Basophils % (auto) 0.3 %; Eosinophils % (auto) 2.5 %; Hematocrit (blood only) 39.8 % (37-47); Hemoglobin 12.9 g/dL (12.0-16.0); Immature Granulocytes # (auto) 0.01 K/uL (0.00-0.02); Immature Granulocytes % (auto) 0.1 %; Lymphocytes # (auto) 2.98 K/uL (1.2-3.4); Lymphocytes % (auto) 37.3 %; Mean Corpuscular Hemoglobin 30.4 pg (25-34); Mean Corpuscular Hgb Conc 32.4 g/dL (32-36); Mean Corpuscular Volume 93.6 fL (80-100); Mean Platelet Volume 9.1 fL (7.4-10.4); Monocytes # (auto) 0.61 K/uL (0.11-0.59); Monocytes % (auto) 7.6 %; Neutrophils # (auto) 4.17 K/uL (1.4-6.5); Neutrophils % (auto) 52.2 %; Platelet Count 408 K/uL (130-400); RDW Coefficient of Variation 13.8 % (11.5-14.5); Red Blood Count 4.25 M/uL (4.2-5.4); White Blood Count 7.99 K/uL (4.8-10.8)
[2021-06-02 05:55] LABS: Partial Thromboplastin Ratio 1.1; Partial Thromboplastin Time 29.3 Seconds (21.0-31.0)
[2021-06-02 06:09] LABS: Troponin I < 0.03 ng/ml (0-0.04)
[2021-06-02 06:12] LABS: Anion Gap 5 (3-11); Blood Urea Nitrogen 12 mg/dl (6-23); Calcium 8.5 mg/dl (8.5-10.1); Carbon Dioxide 26 mmol/L (21-32); Chloride 110 mmol/L (98-107); Chol HDL Ratio 2.7 (0-5); Cholesterol 118 mg/dl (0-200); Creatinine Clr Calc Pharmacy 119.2 ml/min; Est GFR (Non-African American) 110.4 ml/min; Glucose 77 mg/dl (70-99(Fasting)); HDL Cholesterol 44 mg/dl; LDL Cholesterol Calculated 60 mg/dl; Potassium 3.8 mmol/L (3.5-5.1); Sodium 141 mmol/L (136-145); Triglycerides 70 mg/dl (0-150); VLDL Cholesterol 14 mg/dl (0-30)
[2021-06-02] MEDS ORDERED: LEVOTHYROXINE SODIUM 75 MCG TABLET PO SCH (06:30)
--- NOTE | 2021-06-02 07:11 | XRay Report ---
XR chest 1V portable CLINICAL HISTORY: Chest Pain. COMPARISON STUDY: No previous studies for comparison. TECHNIQUE: 1 view of the chest FINDINGS: Single frontal view of the chest demonstrates the cardiomediastinal silhouette to be within normal li mits. The lungs are clear of alveolar opacities. There is no evidence for pleural effusion. There is no evidence for vascular congestion. There is no acute osseous pathology. IMPRESSION: 1. No acute cardiopulmonary disease. ACT 112: Negative or not required by law. Electronically signed by: Kiko Adam M.D. 06/02/2021 7:10 AM
[2021-06-02 07:22] LABS: Estimated Average Glucose 117 mg/dl; Hemoglobin A1C 5.7 % (4.5-5.6)
--- NOTE | 2021-06-02 07:29 | CT Scan Report ---
CT angio chest PE protocol CLINICAL HISTORY: PE TECHNIQUE: Multidetector row helical CT of the chest was performed with angiographic protocol. Nash l and sagittal reformations were obtained. Coronal and sagittal MIPS were obtained from the axial shyann a set and were submitted for review. Automated dose lowering techniques and/or adjustment according to patient size were utilized for this exam. Comparison: None available at the time of this dictation. FINDINGS: Lungs and pleura: Normal. Heart and pericardium: Heart size is normal. No pericardial effusion. Vessels: No evidence of pulmonary embolism. Mediastinum and anderson: Unremarkable. Chest wall and lower neck: Unremarkable. Abdomen: Unremarkable. Bones: Unremarkable. IMPRESSION: No evidence of pulmonary embolism. ACT 112: Negative or not required by law. Electronically signed by: Mathew Vivas M.D. 06/02/2021 7:28 AM
[2021-06-02] MEDS ORDERED: GABAPENTIN 300 MG CAP PO SCH (09:00)
[2021-06-02] MEDS ORDERED: LEVOTHYROXINE PO SCH (09:00)
[2021-06-02] MEDS ORDERED: DULoxetine HCL 60 MG CAP PO SCH (09:00)
[2021-06-02] MEDS ORDERED: ENOXAPARIN INJ 40 MG/0.4 ML SYR SQ SCH (09:00)
[2021-06-02] MEDS ORDERED: BACLOFEN 10 MG TAB PO SCH (09:00)
[2021-06-02] MEDS ORDERED: ASPIRIN 81 MG ECTAB PO SCH (09:00)
[2021-06-02] MEDS ORDERED: NITROGLYCERIN SL 0.4 MG/TAB TAB ONE (10:00)
[2021-06-02] MEDS ORDERED: ONDANSETRON INJ 2 MG/ML 2 ML VIAL ONE (10:00)
[2021-06-02] MEDS ORDERED: PROCHLORPERAZINE 5 MG in SYRINGE 4 ML IV ONE (11:04)
[2021-06-02] MEDS ORDERED: KETOROLAC TROMETHAMINE 15 MG/ML VIAL IV ONE (11:04)
[2021-06-02] MEDS ORDERED: SUMAtriptan succinate 6 MG/0.5 ML VIAL SQ STA (15:22)
[2021-06-02] MEDS ORDERED: SODIUM CHLORIDE 0.9% 1000ML 1,000 ML IV SCH (15:30)
--- NOTE | 2021-06-02 15:42 | Medical Student Consultation ---
Date of Consultation June 02, 2021 Assessment & Plan 1) Precordial chest pain * Stress echo planned for today but was cancelled due to patient developing a severe headache, nausea and vomiting, likely a migraine headache based on her history and presentation * EKG on admission showed normal sinus rhythm with no ST segment elevation * Chest CT on admission showed no PE or pneumonia * Echo at rest today showed no wall motion abnormalities, EF 55-60% * Chest pain possibly due to her history of myofascial pain syndrome or other MSK pathology due to reproducibility with palpation * Patient has no personal history of cardiac disease, HTN, HLD, or DM2 but has a strong family history of CAD in both parents and grandparents with stent placements in their 70s * Due to reproducibility of chest pain on palpation and hemodynamic stability, patient was offered to stay another night inpatient and reschedule stress echo for tomorrow or to be discharged tonight with follow up outpatient. Patient preferred to be discharged with follow-up outpatient. Patient understands that she should report to the ED immediately with change or worsening of chest pain or if additional symptoms develop. 2) Headache: managed per primary team with 6mg SQ sumatriptan History of Present Illness Attending Physician: Delfin Simmons MD History of Present Illness Patient is a 56 year old female with a past medical history of migraines, myofascial pain, depression and hypothyroidism presented to the ED last night (06/01) for left sided chest pain at rest. She has had 1 week of pain and squee zing pressure sensation on the left side of her chest, left upper arm and left side of her neck. She has had some lightheadedness and SOB along with the pain and it is made somewhat worse with exertion. She has had SOB with exertion "for a while" but the last week has had SOB at rest. She did not engage in strenuous lifting or exercise prior to developing the chest pain. Allergies Allergy/AdvReac Type Severity Reaction Status Date / Time No Known Allergies Allergy Unverified 06/01/21 21:45 Home Medications Medication Instructions Recorded Confirmed Type baclofen 10 mg tablet 10 mg PO DAILY 06/01/21 06/01/21 History duloxetine 60 mg capsule,delayed 60 mg PO QAM 06/01/21 06/01/21 History release (Cymbalta) gabapentin 300 mg capsule 300 mg PO BID 06/01/21 06/01/21 History levothyroxine 1 tab PO DAILY 06/01/21 06/01/21 History sumatriptan succinate 50 mg tablet 50 mg PO UD PRN 06/01/21 06/01/21 History Patient History Medical History Hypothyroid Social History Smoking Status: Current every day smoker Cigarettes Per Day: 7; Hx Alcohol Use: No Hx Substance Use: No Preferred Language: Swedish Beliefs That Will Affect Care: None Current Living Situation: Spouse Other Information That Helps Us Care for You: No Feels Safe at Home: Yes Safety Concerns: Feels Safe At This Time Assistive Devices: Denture - Upper Review of Systems Constitutional: no fever or chills Respiratory: mild SOB while laying in bed, no cough Cardiovascular: Additional Comments: left sided squeezing chest pain Gastrointestinal: nausea and vomiting this morning Neurologic: patient describes headache as a migraine that is typical for her. Pain is not localized to one side, mainly in the back of the neck and head, and temples. No visual aura. Physical Exam Constitutional: patient seems uncomfortable due to headache but in no acute distress. Alert and oriented to person, place, and time. Respiratory: normal respiratory effort Cardiovascular: RRR no murmurs, no S3, no S4. No edema in lower extremities Gastrointestinal (Abdomen): abdomen soft, no guarding Musculoskeletal: Chest wall is tender to palpation over left pectoral region. No masses or deformations felt on chest wall. Left shoulder is not tender at AC joint, clavicle or around deltoid. No pain in neck on palpation. Skin: warm and dry Results & Data ([facility]) Vital Signs (Past 12 Hours) Vital Signs Temp Pulse Pulse Resp BP Pulse Ox 06/02/21 14:40 71 06/02/21 12:00 36.8 C 72 20 125/69 97 06/02/21 07:46 36.8 C 66 16 110/63 95 Laboratory Results Troponin <0.03 Diagnostic Findings Echo today, 06/02/21: EF 55-60% mild concentric LVH No segmental left ventricular wall motion abnormalities Normal diastolic function, no significant valvular pathology
--- NOTE | 2021-06-02 15:47 | Cardiology Consultation ---
Date of Consultation June 02, 2021 Assessment & Plan (1) Precordial chest pain: (2) Nausea: (3) Migraine: Given the fact that her chest pain was reproducible and all objective ischemic work-up is unremarkable I do not believe the patient is suffering from acute coronary syndrome. Stress testing was canceled this a.m. due to her severe headache and ongoing nausea and vomiting. Still with ongoing headache at this time. Given no objective findings of ischemia and the fact that her chest pain was completely reproducible on physical exam the patient was offered to remain hospitalized overnight and perform stress testing in the a.m. or discharge to home today and follow-up for outpatient stress testing. Patient states that she prefer to be discharge and undergo stress testing as an outpatient. Okay to discharge to home from a cardiac standpoint. Patient counseled to return the emergency room with any change in her chest pain symptoms. History of Present Illness Reason for Consultation: Chest pain Requesting Physician: Dr. Simmons Attending Physician: Delfin Simmons MD History of Present Illness Patient is a 56 year old female with a past medical history of migraines, myofascial pain, depression and hypothyroidism presented to the ED last night (06/01) for left sided chest pain at rest. She has had 1 week of pain and squeezing pressure sensation on the left side of her chest, left upper arm and left side of her neck. She has had some lightheadedness and SOB along with the pain and it is made somewhat worse with exertion. She has had SOB with exertion "for a while" but the last week has had SOB at rest. She did not engage in strenuous lifting or exercise prior to developing the chest pain. Allergies Allergy/AdvReac Type Severity Reaction Status Date / Time No Known Allergies Allergy Unverified 06/01/21 21:45 Home Medications Medication Instructions Recorded Confirmed Type baclofen 10 mg tablet 10 mg PO DAILY 06/01/21 06/01/21 History duloxetine 60 mg capsule,delayed 60 mg PO QAM 06/01/21 06/01/21 History release (Cymbalta) gabapentin 300 mg capsule 300 mg PO BID 06/01/21 06/01/21 History levothyroxine 1 tab PO DAILY 06/01/21 06/01/21 History sumatriptan succinate 50 mg tablet 50 mg PO UD PRN 06/01/21 06/01/21 History Patient History Medical History Hypothyroid Social History Smoking Status: Current every day smoker Cigarettes Per Day: 7; Hx Alcohol Use: No Hx Substance Use: No Preferred Language: Polish Beliefs That Will Affect Care: None Current Living Situation: Spouse Other Information That Helps Us Care for You: No Feels Safe at Home: Yes Safety Concerns: Feels Safe At This Time Assistive Devices: Denture - Upper Review of Systems 2 Review of Systems: All systems reviewed & are unremarkable except as noted in HPI & below Physical Exam Physical Exam: Physical Exam: General: Awake, alert and oriented x 3. Mild distress due to ongoing headache HEENT: Normocephalic, atraumatic. Pupils equal, round and reactive to light and accommodation. Extraocular muscles are intact. Anicteric sclera. Moist mucous membranes. Neck: No JVD. No bruit. Cardiovascular: Regular. No S-4. Normal S-1 and S-2. No S-3. No murmurs, rubs or gallops. Pulmonary: Clear to auscultation bilaterally. No rales, rhonchi, or wheezing. Abdomen: Bowel sounds x 4, soft. No rebound, guarding or tenderness. No organomegaly. Extremities: No clubbing, cyanosis or edema. +2 pedal pulses bilaterally. Skin: Warm and dry. Results & Data ([facility]) Vital Signs (Past 12 Hours) Vital Signs Temp Pulse Pulse Resp BP Pulse Ox 06/02/21 14:40 71 06/02/21 12:00 36.8 C 72 20 125/69 97 06/02/21 07:46 36.8 C 66 16 110/63 95
--- NOTE | 2021-06-02 17:10 | Discharge Summary ---
Date of Service June 02, 2021 Admission HPI Per Admitting Provider History obtained from patient and records. Medical history significant for mood disorder, myofascial pain syndrome, cervical dysplasia, hypothyroidism, ongoing tobacco abuse. Last confinement 2016 under gynecology service for [facility] for abnormal uterine bleeding. 1 week history of intermittent left-sided squeezing chest pain symptoms with radiation to the throat and under the armpit associated with some shortness of breath. No unusual cough symptoms. Some lightheadedness. Symptoms somewhat worse on exertion. No rashes. 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 Equivocal relief with aspirin and nitroglycerin given at the ER. Medical History as above Surgical History : [facility], colposcopy/hysteroscopy, tonsillectomy/adenoidectomy Family History : Heart disease, throat cancer, bladder cancer, stomach cancer, mood disorder, ovarian cancer, RA Personal/Social history : 1/4 pack daily, occasional EtOH intake, WE[employer]NESS IN[employer]CTOR Principal Diagnosis Atypical chest pain Acute migraine headache Discharge Exam Patient appeared in mild distress due to nausea, photophobia, phonophobia, consistent with her usual migraine headaches. Her headache was not relieved with toradol and compazine. She was placed on IVF and received 1 dose imitrex 6mg SC with significant improvement. Discharge Data Allergies Allergy/AdvReac Type Severity Reaction Status Date / Time No Known Allergies Allergy Unverified 06/01/21 21:45 Consultations 06/01/21 23:09 ED Decision to Admit Stat 06/02/21 10:01 Consult Cardiology Routine Ordered Studies 06/01/21 20:53 CT angio chest PE protocol Stat Hospital Course Ms Geovanna Espinoza is a 56 year old female with a history of hypothyroidism, depression and migraine headaches presented to the ER 06/01 with intermittent chest pain. She is a current smoker and has a family of heart disease so she was admitted for further evaluation. She was ruled out for ACS with serial negative troponin. Her EKG did not reveal dynamic ischemic changes. On exam, she did appear to have a reproducible component to her chest pain. Initially, plan was for her to get a stress echo however on the day of the procedure, she had a severe migraine headache and had nausea/vomiting so the study was cancelled. A regular TTE was obtained which did not show wall motion abnormalities. She was seen by Cardiology and it was offered she may stay for another attempt at stress Echo versus have the study done as an outpatient. She elects for outpatient study. Of note, her migraine headache here was triggered by being NPO and by poor sleep while being in the hospital. Her symptoms did not relieve with toradol and compazine. So she was placed on IVF and received 1 dose Imitrex 6mg SC which significantly relieved her migraine headache and she felt well enough to return home. She will need to follow up with her PCP and Cardiology to schedule her stress test. Total Time Total Time Spent Total Time Spent (In Minutes): 35 Discharge Plan Discharge Items Patient Disposition: Home - Self-Care Reason For Visit: CHEST PAIN Discharge Diagnosis: Atypical chest pain Migraine headache Condition on Discharge: Good Activity: Resume your previous activity Non-emergency contact: Primary Care Provider and Furnace Caretaker Call non-emergency contact if: you have any medication questions and your symptoms worsen Follow-up/Referrals: Omari Seals, [Primary Care Provider] - (Date & Time 06/05/2021 8:00 AM Provider [facility] ) Diet: Heart Healthy Addtl Attending Provider Instructions: Please follow up with Cardiology to arrange for a stress test for your ongoing intermittent chest pain If you suffer from migraines often, you should ask to see a Neurologist to have your migraine medications adjusted Pending Studies at Discharge: No Stand-Alone Forms: My [employer], Smoking Cessation Medications and DC Order Prescriptions: Continued sumatriptan succinate 50 mg tablet 50 mg PO UD PRN (Reason: Migraine Headache) RF: 0 baclofen 10 mg tablet 10 mg PO DAILY RF: 0 gabapentin 300 mg capsule 300 mg PO BID RF: 0 duloxetine [Cymbalta] 60 mg Capsule,Delayed Release(Dr/Ec) 60 mg PO QAM RF: 0 levothyroxine 1 tab PO DAILY RF: 0 Discharge Orders: Discharge Order (Routine); Ordered 06/02/21 Ordered By: Delfin Higgins/Other Patient Handouts: Migraine Triggers, ED Chest Pain, Uncertain Cause Admission Data Admit Date/Time: 06/02/21 00:54 Attending Provider: Delfin Simmons Admit Provider: Brendan Spivey Primary Care Provider: Omari Seals Other Providers: Brendan Spivey ; Fili Kc
--- NOTE | 2021-06-03 06:05 | Electrocardiogram Report ---
Test Reason : Blood Pressure : / mmHG Vent. Rate : 085 BPM Atrial Rate : 085 BPM P-R Int : 136 ms QRS Dur : 082 ms QT Int : 396 ms P-R-T Axes : 040 082 052 degrees QTc Int : 471 ms Normal sinus rhythm Normal ECG No previous ECGs available Confirmed by Romulo Hood ([id number]) on 06/03/2021 6:05:04 AM Referred By: REFERRED SELF Confirmed By:Romulo Hood
--- NOTE | 2021-06-03 06:16 | Electrocardiogram Report ---
Test Reason : Blood Pressure : / mmHG Vent. Rate : 064 BPM Atrial Rate : 064 BPM P-R Int : 162 ms QRS Dur : 076 ms QT Int : 430 ms P-R-T Axes : 036 075 057 degrees QTc Int : 443 ms Normal sinus rhythm Low voltage QRS Borderline ECG When compared with ECG of 01-JUN-2021 20:41, No significant change was found Confirmed by Romulo Hood ([id number]) on 06/03/2021 6:16:24 AM Referred By: REFERRED SELF Confirmed By:Romulo Hood
== END 2021-06-02 18:10 | disposition home or self-care (01) ==
LOC: 2S 20:34 → ED 20:34 → 2S 06-02 01:42